=== PATIENT | male | born 1955 | race Caucasian/White ===

== ENCOUNTER → 2018-01-13 | Outpatient (CLI) | payer BC, OTHER ==
[~2018-01-13] MED LIST: ASPIRIN 32325 MG/TAB PO; CELEXA 20MG20 MG/TAB PO; COLACE 100100 MG/CAP; COLACE 100100 MG/CAP PO; CREON 120000 U-1 ECC PO; CREON 60000 U-11 ECC PO; CRESTOR5 MG PO; FERROUS SU325 MG/TAB PO; FOLIC ACID 40400 MCG PO; LOPRESSOR 550 MG/TAB PO; MULTIPLE VITAMI1 CAP PO; MVI; NEURONTIN300 MG/CAP PO; NITROSTAT0.4 MG/TAB SL; OXY IR5 MG PO; PEPCID 20MG TAB20 MG PO; PLAVIX 75MG TAB75 MG PO; PRILOSEC 20MG20 MG PO; RANEXA 500MG T500 MG PO; THIAMINE; TRICOR 48MG48 MG PO; TYLENOL 500MG500 MG PO; ULTRAM 50MG TAB50 MG PO; VIOKASE; VITAMINC1000TA; VOLTAREN GEL 1%1 TU TP
[2018-01-13 12:55] LABS: BASO % 0.5 % (0.0-2.0); EOS # 0.1 (0.0-0.7); EOS % 1.6 % (0-4.0); GRAN # 3.9 (1.4-6.5); HEMATOCRIT 38.2 % (42.0-52.0); HEMOGLOBIN 12.7 g/dl (13.5-18.0); LYMPH # 1.7 (1.2-3.4); LYMPH % 25.8 % (20.0-51.0); MEAN CELL VOLUME 87 fl (80.0-100.0); MEAN CORPUSCULAR HEMOGLOBIN 29 pg (27.0-31.0); MEAN CORPUSCULAR HGB CONC 33 g/dl (33.0-37.0); MEAN PLATELET VOLUME 9.9 fl (7.4-10.4); MONO # 0.8 (0.1-0.6); MONO % 11.9 % (1.7-9.3); PLATELET COUNT 161 K/mm3 (130-400); RED BLOOD COUNT 4.39 M/mm3 (4.20-5.60); REDCELL DISTRIBUTION WIDTH-CV 13.2 % (11.5-14.5)
[2018-01-13 12:59] LABS: PROTHROMBIN TIME 11.4 SECONDS (9.7-12.8)
[2018-01-13 13:05] LABS: ALBUMIN 3.5 gm/dL (3.5-5.0); BILIRUBIN,TOTAL 0.3 mg/dL (0.0-1.0); CALCIUM 9.3 mg/dL (8.4-10.2); CREATININE, serum 0.47 mg/dL (0.66-1.25); POTASSIUM 3.8 mmol/L (3.4-5.0); TOTAL PROTEIN 6.5 gm/dL (6.4-8.2)
== END ==
LOC: COL.VAS 11:00 → COL.LAB 11:48
PROVIDERS: Physician Assistant
DX: R60.0 Localized edema (principal); K74.60 Unspecified cirrhosis of liver; K86.1 Other chronic pancreatitis

== ENCOUNTER → 2018-02-03 | Outpatient (CLI) | payer BC, OTHER ==
[~2018-02-03] VITALS: Ht 185.4 cm; Wt 68.2 kg
[2018-02-03] VITALS (15 sets, daily range): BP systolic 120–183; BP diastolic 60–116; PULSE 92–112
[~2018-02-03] MED LIST changes: +CANA300T PO; +CARAFATE 1GM1 G PO; +GLUCOPHAGE500 MG/TAB PO; +PRAVACHOL 20MG20 MG PO; +PROTONIX20 MG PO
== END ==
LOC: COL.RAD 08:52
DX: K74.60 Unspecified cirrhosis of liver (principal); K86.1 Other chronic pancreatitis; Z90.49 Acquired absence of other specified parts of digestive tract; Z95.1 Presence of aortocoronary bypass graft
CPT/HCPCS: J2250; J3010

== ENCOUNTER → 2018-08-17 | Outpatient (CLI) | payer BC, OTHER | LOC: COL.RAD 07:11 | DX: K75.81 Nonalcoholic steatohepatitis (NASH) (principal); K83.8 Other specified diseases of biliary tract; R12 Heartburn; Z90.49 Acquired absence of other specified parts of digestive tract ==

== ENCOUNTER → 2018-08-22 | Outpatient (CLI) | payer BC, OTHER | LOC: COL.RAD 07:23 | DX: K75.81 Nonalcoholic steatohepatitis (NASH) (principal) | CPT/HCPCS: A9541 ==